=== PATIENT | male | born 1965 ===

== ENCOUNTER 2017-07-29 18:59 | Emergency (ER) | payer BC ==
[2017-07-29 19:03] VITALS: BP 129/70; PULSE 74; RESP 16; TEMP 97.8; O2SAT 97
[2017-07-29] MEDS ORDERED: Sodium Chloride 0.9% 1,000 ML IV STA (19:30)
--- NOTE | 2017-07-29 19:40 | ED PDOC ---
HPI: Abdomen Time Seen by Provider: 07/29/17 19:04 Chief Complaint (Nursing): Male Genitourinary Chief Complaint (Provider): Flank pain L History Per: Patient, Family History/Exam Limitations: no limitations Onset/Duration Of Symptoms: Days Outside of [place] travel?: No Current Symptoms Are (Timing): Intermittent Episodes Severity: Severe Pain Scale Rating Of: 8 Location Of Pain/Discomfort: LLQ, Other (L flank pain ) Quality Of Discomfort: Sharp, Cramping Associated Symptoms: Other (more concentrated urine then usual, darker color ). denies: Fever, Chills, Nausea, Vomiting, Constipation, Urinary Symptoms Exacerbating Factors: None Alleviating Factors: None Last Bowel Movement: Today Additional Complaint(s): CC: my stomach hurts HPI: 51 YO Male with no sig PMH presents to [facility] ED for L flank pain. Per pt, pain started 3 days ago and lasted a few minutes and resolved by itself. Subsequently the pain came back today about 2 hours ago has remained persistent. The pain is located in his mid-left flank area, with radiation to his L groin and L back. pain is rated as a 8/10, with no alleviating factors or exacerbating factors. No associated symptoms, denies dysuria, hematuria, urinary frequency. Notes that his urine looks darker then usual. Pt has not tried any PO meds for the pain. No similar episodes of the past. Denies chest pain, dyspnea, palpitations, n/v/d/c, fever, chills. Of note, pt is sexually active with gf, no hx of STIs. No penile discharge, pain or lesions noted. Partner present by bedside. PMH: denies SurHx: denies SH: denies ETOH, smoking and illicit drug use FH: hx DM in father and hx of Colon CA and breast CA in father's side of family Allergies: NKDA Meds: none Past Medical History Vital Signs: Last Vital Signs Temp 97.8 F 07/29/17 19:01 Pulse 74 07/29/17 19:01 Resp 16 07/29/17 19:01 BP 129/70 07/29/17 19:01 Pulse Ox 97 07/29/17 22:17 - Medical History PMH: No Chronic Diseases - Surgical History Surgical History: No Surg Hx - Family History Family History: States: Other Other Family History: Fx of DM, colon CA, breast CA in father's side of family - Living Arrangements Living Arrangements: With Friends/Others - Social History Current smoker - smoking cessation education provided: No Alcohol: None Drugs: Denies - Home Medications Home Medications: Ambulatory Orders Medication Instructions Recorded Ciprofloxacin [Cipro] 1 tab PO BID #20 tab 07/29/17 Ibuprofen [Motrin Tab] 600 mg PO Q8 PRN #60 tab 07/29/17 Tamsulosin [Flomax] 0.4 mg PO DAILY #14 cap 07/29/17 - Allergies Allergies/Adverse Reactions: Allergies Allergy/AdvReac Type Severity Reaction Status Date / Time No Known Allergies Allergy Verified 07/29/17 19:01 Review of Systems Constitutional: Negative for: Fever, Chills, Malaise Cardiovascular: Negative for: Chest Pain, Palpitations Respiratory: Negative for: Cough, Shortness of Breath Gastrointestinal: Positive for: Abdominal Pain. Negative for: Nausea, Vomiting , Diarrhea, Constipation (L flank pain ) Genitourinary Male: Positive for: Other (Discomfort in L groin ). Negative for : Dysuria, Frequency, Hematuria, Penile Discharge, Scrotal Pain, Rash, Penile Pain Skin: Negative for: Rash, Lesions, Jaundice Neurological: Negative for: Weakness, Numbness, Headache Physical Exam - Reviewed Vital Signs Reviewed: Yes - Physical Exam Appears: Positive for: In Acute Distress (looks uncomfortable, moving around while sitting down ) Head Exam: Positive for: ATRAUMATIC, NORMOCEPHALIC Skin: Positive for: Normal Color, Warm, Dry. Negative for: Jaundice Eye Exam: Positive for: Normal appearance, EOMI Cardiovascular/Chest: Positive for: Regular Rate, Rhythm. Negative for: Murmur Respiratory: Positive for: Normal Breath Sounds. Negative for: Crackles, Wheezing Gastrointestinal/Abdominal: Positive for: Bowel Sounds, Soft, Tenderness ( suprapubic tenderness to palpation ). Negative for: Distended Male Genital Exam: Positive for: normal genitalia, other (L scrotal discomfort on exam). Negative for: no hernia, inguinal tenderness, lesions, urethral discharge Back: Positive for: Normal Inspection. Negative for: L CVA Tenderness, R CVA Tenderness Extremity: Positive for: Normal ROM. Negative for: Tenderness, Pedal Edema Neurologic/Psych: Positive for: Alert, Oriented - Laboratory Results Result Diagrams: 07/29/17 20:00 07/29/17 20:00 - ECG O2 Sat by Pulse Oximetry: 97 - Progress ED Course And Treament: 51 YO male with no sig PMH presents to [facility] ED for L flank pain likely 2/2 to renal calculus. --Urine dip --UA and UC --CBC --CMP --CT abdomen and pelvis --IV fluids --Ketoralac for pain --Tylenol for pain --Tamsulosin Pt seen and reevaluated. Pt feels alot better after Meds and IV fluids Urine dip sig for large blood, Nites neg, small leukes. Elevated BUN/cret 23/1.3 CT interpreted by me: calcification noted in L ureter Official CT abdomen adn pelvis: IMPRESSION: 1. Lack of intravenous contrast limits evaluation for pathology. 2. 4-5 mm calculus in the distal left ureter/pelvis conjunction causing moderate proximal hydroureteronephrosis. There is associated perinephric/periureteral fat stranding, likely related to passage of calculus. Superimposed infection is not excluded. Clinical correlation is recommended. 3. Right kidney not visualized. Pt d/c home with cipro, ibuprofen and flomax. Follow up with PMD Disposition - Clinical Impression Clinical Impression: Renal calculus, left, Urinary tract infection - Patient ED Disposition Is Patient to be Admitted: No - Disposition Referrals: Casey Pickard Jr., MD [Staff Provider] - 07/31/17 12:00 pm Disposition Time: 22:17 Condition: STABLE Additional Instructions: Please Follow up with PMD Return to ED if pain persists or worsens With fever over 100.4 with tylenol. Prescriptions: Ciprofloxacin [Cipro] 1 tab PO BID #20 tab Ibuprofen [Motrin Tab] 600 mg PO Q8 PRN #60 tab PRN Reason: Pain, Moderate (4-7) Tamsulosin [Flomax] 0.4 mg PO DAILY #14 cap Instructions: Kidney Stones (ED), Renal Colic (ED) Forms: jellyfish (Croatian)
[2017-07-29 20:10] LABS: BASO % 0.2 % (0.0-2.0); EOS % 0.4 % (0.0-4.0); LYMPH # 1.1 K/uL (1.0-4.3); LYMPH % 13.2 % (20.0-40.0); MEAN CORPUSCULAR HEMOGLOBIN 28.8 pg (27.0-31.0); MEAN CORPUSCULAR HGB CONC 32.8 g/dL (33.0-37.0); MEAN PLATELET VOLUME 8.3 fl (7.2-11.7); MONO # 0.3 K/uL (0.0-0.8); MONO % 3.2 % (0.0-10.0); NEUT # 6.9 K/uL (1.8-7.0); NRBC % 0.1 % (0.0-0.0); RBC 5.21 Mil/uL (4.40-5.90); WHITE BLOOD COUNT 8.3 K/uL (4.8-10.8)
[2017-07-29 20:19] LABS: ALB/GLOB RATIO 1.5 (1.0-2.1); ALBUMIN 4.7 g/dL (3.5-5.0); CALCIUM 10.1 mg/dL (8.4-10.2)
--- NOTE | 2017-07-30 08:54 | CT ---
PROCEDURE: CT Abdomen and Pelvis without intravenous contrast HISTORY: LEFT flank pain COMPARISON: None. TECHNIQUE: Axial and reformatted coronal and sagittal CT images of the abdomen and pelvis were obtained without IV or oral contrast administration.. Contrast Dose: 0 Radiation dose: Total exam DLP = 459.74 mGy-cm. This CT exam was performed using one or more of the following dose reduction techniques: Automated exposure control, adjustment of the mA and/or kV according to patient size, and/or use of iterative reconstruction technique. FINDINGS: LOWER THORAX: No evidence of acute pathology LIVER: Unremarkable1.7 centimeter low-attenuation lesion at the posterior aspect of the liver dome measures fluid density may represent liver cyst. However this lesion is not fully characterized in this noncontrast study. There is a small coarse calcification at the mid posterior aspect of the liver likely represent granuloma. . No gross lesion or ductal dilatation. GALLBLADDER AND BILE DUCTS: Unremarkable. PANCREAS: Unremarkable. No gross lesion or ductal dilatation. SPLEEN: Unremarkable. ADRENALS: Unremarkable. No mass. KIDNEYS AND URETERS: The right kidney is not visualized. The left kidney is mildly enlarged. There is mild to moderate left hydronephrosis and hydroureter up to the UV junction. There is 4.5 millimeter calculus at the left UV junction or just passed to the bladder. VASCULATURE: Unremarkable. No aortic aneurysm. BOWEL: Unremarkable. No obstruction. No gross mural thickening. APPENDIX: Unremarkable. Normal appendix. PERITONEUM: Unremarkable. No free fluid. No free air. LYMPH NODES: Unremarkable. No enlarged lymph nodes. BLADDER: Unremarkable. REPRODUCTIVE: Unremarkable. BONES: No acute fracture. OTHER FINDINGS: None. IMPRESSION: Right kidney not visualized. Compensated mildly enlarged left kidney. [id number] left hydronephrosis and hydroureter up to the left UV junction. 4.5 millimeter calculus at the left UV junction or just passed to the urinary bladder. Otherwise no evidence of acute pathology in the abdomen and pelvis. Preliminary report was submitted by [facility].
== END 2017-07-29 23:53 | disposition home or self-care (01) ==
LOC: H.ER 18:59
DX: N39.0 Urinary tract infection, site not specified (principal); N13.2 Hydronephrosis with renal and ureteral calculous obstruction
CPT/HCPCS: 74176; 80053; 85025; 87086; 96374; 99285; J1885; J7040